=== PATIENT | male | born 1960 | race Caucasian/White ===

== ENCOUNTER 2017-11-09 08:27 | Inpatient (IN) | payer OTHER ==
[~2017-11-09] VITALS: Ht 170.2 cm; Wt 79.3 kg
[~2017-11-09 08:27] MED LIST: ACET-2047 PO; D-ME118S6 PO; IBUP-1542 PO; OSLT75C PO
--- NOTE | 2017-11-09 08:57 | ERD ---
ER Documentation Chief Complaint Chief Complaint chest pressure x 1 hr ago, + vomiting HPI 57-year-old male ambulatory to the ED for evaluation of chest pressure and headache. Patient awoke this morning and subsequently experienced acute onset of unprovoked, severe, worsening pressure-like chest pain which radiates to the shoulders and back followed by a pressure-like occipital headache. Denies visual changes, focal weakness or numbness. Shortness of breath, nausea with one episode of nonbloody nonbilious emesis no diaphoresis. Denies abdominal pain or low back pain. No visual changes, focal weakness or numbness. No URI symptoms or cough. No fevers or chills. ROS All systems reviewed and are negative except as per history of present illness. Medications Home Meds Discontinued Scripts Acetaminophen* (Acetaminophen*) 650 Mg Tablet, 650 MG PO Q6H Y for PAIN AND OR ELEVATED TEMP, #30 TAB Prov:CULLEN PERRIN MD 02/01/16 Ibuprofen* (Ibuprofen*) 600 Mg Tablet, 600 MG PO Q6, #20 TAB Prov:CULLEN PERRIN MD 02/01/16 Dextromethorphan Hb-Promethazine Hcl (Promethazine DM Syrup) 180 Ml Syrup, 10 ML PO Q6H Y for COUGH, #4 OZ Prov:CULLEN PERRIN MD 02/01/16 Oseltamivir Phosphate* (Tamiflu*) 75 Mg Capsule, 75 MG PO BID for 5 Days, CAP Prov:CULLEN PERRIN MD 02/01/16 Allergies Allergies: Coded Allergies: No Known Allergy (Unverified , 11/09/17) PMhx/Soc Reviewed in chart. As per HPI. History of Surgery: Yes (appy ) Anesthesia Reaction: No Hx Neurological Disorder: No Hx Respiratory Disorders: No Hx Cardiac Disorders: No Hx Psychiatric Problems: No Hx Miscellaneous Medical Probl: No Hx Alcohol Use: No Hx Substance Use: No Hx Tobacco Use: No Smoking Status: Never smoker FmHx No family history of sudden cardiac , stroke or subarachnoid hemorrhage. Physical Exam Vitals Vital Signs Date Time Temp Pulse Resp B/P Pulse Ox O2 Delivery O2 Flow Rate FiO2 11/09/17 11:15 61 17 119/75 100 Nasal Cannula 2.0 11/09/17 09:09 Nasal Cannula 2 11/09/17 08:57 Nasal Cannula 3 11/09/17 08:56 135/87 129/84 11/09/17 08:29 98.1 76 18 145/72 100 Physical Exam Const: Alert, severe distress due to pain Head: Atraumatic Eyes: Normal Conjunctiva, anicteric ENT: Normal External Ears, Nose and Mouth. Neck: Full range of motion. Carotids 2+ without bruits, No meningismus. Resp: Clear to auscultation bilaterally Cardio: Regular rate and rhythm, no murmurs Chest Wall: No tenderness or rash Abd: Soft, non tender, non distended. Normal bowel sounds. Skin: No petechiae or rashes Back: No midline or flank tenderness Ext: No cyanosis, or edema. Pulses 4+ in all extremities Neur: Awake and alert. No focal deficit. Psych: Cooperative, anxious Result Diagram: 11/09/1790611/09/17906 Results 24 hrs Laboratory Tests Test 11/09/17 09:07 11/09/17 11:07 White Blood Count 4.710^3/ul Red Blood Count 3.2010^6/ul Hemoglobin 11.2g/dl Hematocrit 31.7% Mean Corpuscular Volume 99.1fl Mean Corpuscular Hemoglobin 35.0pg Mean Corpuscular Hemoglobin Concent 35.3g/dl Red Cell Distribution Width 14.4% Platelet Count 54320^3/UL Mean Platelet Volume 9.5fl Neutrophils % 66.7% Lymphocytes % 24.4% Monocytes % 6.8% Eosinophils % 1.1% Basophils % 0.4% Nucleated Red Blood Cells % 0.0/100WBC Neutrophils # 3.110^3/ul Lymphocytes # 1.110^3/ul Monocytes # 0.310^3/ul Eosinophils # 0.110^3/ul Basophils # 0.010^3/ul Nucleated Red Blood Cells # 0.010^3/ul Prothrombin Time 14.2Sec Prothrombin Time Ratio 1.1 INR International Normalized Ratio 1.09 Activated Partial Thromboplast Time 29.1Sec Sodium Level 143mmol/L Potassium Level 3.7mmol/L Chloride Level 107mmol/L Carbon Dioxide Level 23mmol/L Anion Gap 17 Blood Urea Nitrogen 11mg/dl Creatinine 0.78mg/dl Glucose Level 119mg/dl Calcium Level 8.7mg/dl Iron Level 93ug/dl Total Iron Binding Capacity 250ug/dl Percent Iron Saturation 37% SAT Total Bilirubin 3.2mg/dl Direct Bilirubin 0.00mg/dl Indirect Bilirubin 3.2mg/dl Aspartate Amino Transf (AST/SGOT) 41IU/L Alanine Aminotransferase (ALT/SGPT) 71IU/L Alkaline Phosphatase 84IU/L Troponin I < 0.012ng/ml B-Type Natriuretic Peptide 75PG/ML Total Protein 7.3g/dl Albumin 3.9g/dl Globulin 3.40g/dl Albumin/Globulin Ratio 1.14 Triglycerides Level 47mg/dl Cholesterol Level 59mg/dl LDL Cholesterol, Calculated 22mg/dl HDL Cholesterol 28mg/dl Cholesterol/HDL Ratio 2.1RATIO Thyroid Stimulating Hormone (TSH) 4.340MIU/L Current Medications Medications (Trade) Dose Ordered Sig/Shelby Route PRN Reason Start Time Stop Time Status Last Admin Dose Admin Nitroglycerin (Nitroglycerin (Sl Tab) 0.4 Mg) 1 tab Q5M UP TO 3 DOSES PRN SL CHEST PAIN 11/09/17 09:00 11/09/17 13:09 DC 11/09/17 08:59 Morphine Sulfate (morphine) 4 mg ONCE STAT IV 11/09/17 09:22 11/09/17 09:24 DC 11/09/17 09:27 Ondansetron HCl (Zofran Inj) 4 mg ONCE STAT IV 11/09/17 09:22 11/09/17 09:24 DC 11/09/17 09:27 Iohexol (Omnipaque 350mg/ ml) 50 ml STK-MED ONCE .ROUTE 11/09/17 10:48 11/09/17 10:49 DC 11/09/17 11:00 Aspirin (Aspirin) 325 mg ONCE ONCE PO 11/09/17 12:00 11/09/17 12:01 DC 11/09/17 12:01 LABS: Leukopenia, mild anemia and hyperbilirubinemia EKG: TIME: 08: 29. Sinus rhythm. Ventricular rate 68. Normal MS QRS. No acute ST segment elevation or depression. No ectopy. EP Interpretation: Normal EKG. EKG: TIME: 08: 57. Sinus rhythm. Ventricular rate 60. MS interval 210 ms consistent with first-degree AV block. No acute ST segment elevation or depression. No ectopy. EP interpretation: First-degree AV block otherwise normal ECG. IMAGING: PROCEDURE: XR Chest. CLINICAL INDICATION: Chest Pain. TECHNIQUE: Single frontal view of the chest was obtained COMPARISON: None FINDINGS: The heart is mildly enlarged. The lungs are clear. There is no pleural effusion or pneumothorax. The bones and soft tissue show no acute change. IMPRESSION: Mild cardiomegaly. RPTAT:AAJJ Jose E Camacho Physician Date Time Electronically viewed and signed by Jose E Camacho Physician on 11/09/2017 09: 12 MC/ PROCEDURE: CTA Chest and pulmonary angiogram. CLINICAL INDICATION: Chest pain and shortness of breath.. TECHNIQUE: CT scan of the chest and CT pulmonary angiogram was performed on the multi-slice volumetric CT scanner. High-resolution thin slice coronal and sagittal imaging was obtained from the axial source images following the uncomplicated intravenous administration of 120 cc of Omnipaque 350 contrast. The images were reviewed on a PACS workstation. 3-D post-processing performed. DICOM images are available. DLP = 723.9 mGy-cm. CTDIVol = 49.3, 18.2 mGy. One or more of the following dose reduction techniques were used: Automated exposure control. Adjustment of the mA and/or kV according to patient size. Use of iterative reconstruction technique. COMPARISON: No prior studies are available for comparison. FINDINGS: CT chest: The lungs are clear. Mediastinum and hilum show no significant mass or adenopathy. The vascular structures of the mediastinum are normal in course and caliber. The heart size is normal without pericardial thickening or effusion. The axillary, subpectoral, and supraclavicular regions are unremarkable. Imaging obtained through the upper abdomen is equally unremarkable. The adrenal glands are symmetrically normal. Chest wall is unremarkable. The spine is unremarkable. Mild splenomegaly may be present. CT pulmonary angiogram: The main pulmonary artery, bilateral pulmonary arterial trunks, lobar and segmental branches of the pulmonary arteries show no evidence of filling defect and/or pulmonary emboli. The aorta is normal in caliber without aneurysm or dissection. IMPRESSION: 1. No evidence of pulmonary emboli, aortic aneurysm or dissection.. 2. Normal CT scan of the chest. 3. Mild splenomegaly RPTAT: QQ PROCEDURE: CT Brain without contrast. CLINICAL INDICATION: Headache, dizziness. TECHNIQUE: A CT of the brain without contrast was performed utilizing axial sections from the skull base through the vertex. One or more the following does reduction techniques were utilized: Automated exposure control, adjustment of the mA/ or kV according to patient's size, or use of iterative reconstruction technique. Total exam CTDIvol is 44.99 MGy and DLP is 720.23 mGy-cm. DICOM images are available. COMPARISON: None available. FINDINGS: The ventricles and sulci are mildly prominent indicative of volume loss. There is no intracranial hemorrhage, mass effect or midline shift. No abnormal intra- axial or extra-axial fluid collections are seen. The yeh/white matter differentiation is well preserved. There are minimal foci of hypoattenuation in the white matter, which are nonspecific in etiology but likely reflect chronic small vessel ischemic changes. The visualized paranasal sinuses are essentially clear. IMPRESSION: 1. No acute intracranial hemorrhage, transcortical infarction or mass effect. 2. Minimal chronic small vessel ischemic changes. 3. Mild generalized cerebral volume loss. RPTAT: HH .Parul Ramirez MD, MD Date Time Electronically viewed and signed by .Parul Ramirez MD, on 11/09/2017 11: 27 .N/ PROCEDURE: CTA head and neck CLINICAL INDICATION: Headache and dizziness. TECHNIQUE: The study was performed utilizing a multi-slice multidetector CT scanner. Direct thin section helical 0.625 mm axial sections were obtained through the head and neck after the uneventful administration of 130 cc of Omnipaque 350 nonionic intravenous contrast material. Coronal and sagittal as well as maximal intensity projection reformations were obtained. 3-D images were made. The images were reviewed on a PACS workstation. The total CTDIvol is 15.82, and 1.65 mGy and the DLP is 659.39 mGy-cm. DICOM images are available. One or more of the following dose reduction techniques were used: Automated exposure control. Adjustment of the mA and/or kV according to patient size. Use of iterative reconstruction technique. COMPARISON: No prior studies are available for comparison. FINDINGS: CTA NECK: The origins of the great vessels off the aortic arch are patent and normal in caliber without significant stenosis. The common carotid arteries and internal carotid arteries are normal in appearance without significant atherosclerotic plaque or stenosis. Minimal calcific plaque is seen at the right carotid bulb. The vertebral arteries are also patent and normal in caliber bilaterally. There is no evidence of a hemodynamically significant stenosis or dissection. CTA BRAIN: The internal carotid arteries are patent with mild atherosclerotic calcifications. The middle cerebral arteries and anterior cerebral arteries are patent and normal in caliber. The intracranial vertebral arteries, basilar artery, and posterior cerebral arteries are also patent and normal in caliber without significant atherosclerotic plaque. No aneurysm or vascular malformation is identified. IMPRESSION: 1. Intracranial arteries are patent with no significant stenosis or occlusion. 2. Widely patent major neck vessels with no significant stenosis. 3. No obvious cerebral aneurysms or vascular malformations. The evaluation for small cerebral aneurysms is somewhat limited due to phase of the study. NASCET CAROTID STENOSIS CRITERIA (distal normal appearing ICA as denominator for measurement): 0%-none, 1-49%-mild, 50-70%-moderate, 70-89%-severe, 90-99%- critical. 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 No acute ischemic EKG changes or elevated troponin. CT angiogram of the chest was performed to evaluate for pulmonary embolism and aortic dissection but is negative. Minimal relief from nitrates required Morphine. CT of the brain is unremarkable for bleed or aneurysm. No meningismus or signs of meningitis or encephalitis. Presentation not consistent with subarachnoid hemorrhage and lumbar puncture is deferred. Hyperbilirubinemia with mild LT elevation, but abdominal exam benign will require further evaluation. Admit to telemetry for risk stratification further evaluation and management. Counseled patient and family regarding diagnosis, diagnostic results and plan for admission. CALLS/CONSULTS: Time: 11:54, Dr. Rowley, PATIENT CARE TRANSITIONED: Time: 12:16, Dr. Renato Soto. CRITICAL CARE TIME: Due to the high probability of sudden clinically significant hemodynamic, cardiovascular and neurologic, endocrine deterioration , this patient with sever chest pain and headache required multiple, frequent reevaluations of vital signs and response to therapy. Additional critical care time was spent in obtaining supplemental history from family, interpretation of relevant medical data including labs and imaging studies as well as arranging for ongoing care with the admitting physician. TOTAL CRITICAL CARE TIME: 40 minutes not including other separately reportable procedures. Departure Diagnosis: Primary Impression: Chest pain Chest pain type: unspecified Qualified Code: R07.9 - Chest pain, unspecified type Additional Impressions: Headache Headache type: unspecified Headache chronicity pattern: acute headache Intractability: intractable Qualified Code: R51 - Acute intractable headache , unspecified headache type Hyperbilirubinemia Condition: Serious DEVIN GRAY MD Nov 09, 2017 08:57
[2017-11-09] MEDS: NITROGLYCERIN (SL) 0.4 MG TAB SL PRN ×2 (08:58→08:59)
--- NOTE | 2017-11-09 09:12 | RADRPT ---
PROCEDURE: XR Chest. CLINICAL INDICATION: Chest Pain. TECHNIQUE: Single frontal view of the chest was obtained COMPARISON: None FINDINGS: The heart is mildly enlarged. The lungs are clear. There is no pleural effusion or pneumothorax. The bones and soft tissue show no acute change. IMPRESSION: Mild cardiomegaly. RPTAT:AAJJ Jose E Camacho Physician Date Time Electronically viewed and signed by Jose E Camacho Physician on 11/09/2017 09:12 /
[2017-11-09 09:16] LABS: BASOPHILS % 0.4 % (0.0-2.0); EOSINOPHILS # 0.1 10^3/ul (0.0-0.5); EOSINOPHILS % 1.1 % (0.0-7.0); HEMATOCRIT 31.7 % (42.0-52.0); HEMOGLOBIN 11.2 g/dl (14.0-18.0); LYMPHOCYTES # 1.1 10^3/ul (0.8-2.9); LYMPHOCYTES % 24.4 % (15.0-51.0); MEAN CORPUSCULAR HGB CONC 35.3 g/dl (32.0-37.0); MEAN CORPUSCULAR VOLUME 99.1 fl (82.0-101.0); MEAN PLATELET VOLUME 9.5 fl (7.4-10.4); MONOCYTE # 0.3 10^3/ul (0.3-0.9); MONOCYTES % 6.8 % (0.0-11.0); NEUTROPHIL # 3.1 10^3/ul (1.6-7.5); NEUTROPHILS % 66.7 % (39.0-77.0); PLATELET COUNT 146 10^3/UL (140-415); RED CELL DISTRIBUTION WIDTH 14.4 % (11.5-14.5); WHITE BLOOD COUNT 4.7 10^3/ul (4.8-10.8)
[2017-11-09] MEDS ORDERED: ONDANSETRON 4 MG INJ IV STA (09:22)
[2017-11-09] MEDS ORDERED: morphine 4 MG/ML VIAL IV STA (09:22)
[2017-11-09 09:42] LABS: ALANINE AMINOTRANSFERASE 71 IU/L (13-69); ALBUMIN 3.9 g/dl (3.3-4.9); ALBUMIN/GLOBULIN RATIO 1.14; ALKALINE PHOSPHATASE 84 IU/L (42-121); ANION GAP 17 (8-16); ASPARTATE AMINO TRANSFERASE 41 IU/L (15-46); BILIRUBIN,INDIRECT 3.2 mg/dl (0-1.1); BILIRUBIN,TOTAL 3.2 mg/dl (0.2-1.3); BLOOD UREA NITROGEN 11 mg/dl (7-20); CALCIUM 8.7 mg/dl (8.4-10.2); CARBON DIOXIDE 23 mmol/L (21-31); CHLORIDE 107 mmol/L (97-110); CREATININE 0.78 mg/dl (0.61-1.24); GLUCOSE 119 mg/dl (70-220); POTASSIUM 3.7 mmol/L (3.5-5.1); SODIUM 143 mmol/L (135-144); TOTAL PROTEIN 7.3 g/dl (6.1-8.1)
[2017-11-09 09:54] LABS: TROPONIN-I < 0.012 ng/ml (0.00-0.12)
[2017-11-09 10:14] LABS: INR 1.09; PROTIME 14.2 Sec (11.9-14.9); PT RATIO 1.1
[2017-11-09 10:15] LABS: PARTIAL THROMBOPLASTIN TIME 29.1 Sec (25.0-35.0)
[2017-11-09] MEDS ORDERED: IOHEXOL 350MG/ML 50 ML BTL ONE (10:48)
--- NOTE | 2017-11-09 11:27 | RADRPT ---
PROCEDURE: CT Brain without contrast. CLINICAL INDICATION: Headache, dizziness. TECHNIQUE: A CT of the brain without contrast was performed utilizing axial sections from the skul l base through the vertex. One or more the following does reduction techniques were utilized: Automa ludivina exposure control, adjustment of the mA/ or kV according to patient's size, or use of iterative r econstruction technique. Total exam CTDIvol is 44.99 MGy and DLP is 720.23 mGy-cm. DICOM images are available. COMPARISON: None available. FINDINGS: The ventricles and sulci are mildly prominent indicative of volume loss. There is no intracranial h emorrhage, mass effect or midline shift. No abnormal intra-axial or extra-axial fluid collections a re seen. The yeh/white matter differentiation is well preserved. There are minimal foci of hypoattenuation in the white matter, which are nonspecific in etiology but likely reflect chronic small vessel ischemic changes. The visualized paranasal sinuses are essent ially clear. IMPRESSION: 1. No acute intracranial hemorrhage, transcortical infarction or mass effect. 2. Minimal chronic small vessel ischemic changes. 3. Mild generalized cerebral volume loss. RPTAT: HH .Parul Ramirez MD, MD Date Time Electronically viewed and signed by .Parul Ramirez MD, MD on 11/09/2017 11:27 .N/
--- NOTE | 2017-11-09 11:36 | RADRPT ---
PROCEDURE: CTA Chest and pulmonary angiogram. CLINICAL INDICATION: Chest pain and shortness of breath.. TECHNIQUE: CT scan of the chest and CT pulmonary angiogram was performed on the multi-slice volume tric CT scanner. High-resolution thin slice coronal and sagittal imaging was obtained from the axia l source images following the uncomplicated intravenous administration of 120 cc of Omnipaque 350 co ntrast. The images were reviewed on a PACS workstation. 3-D post-processing performed. DICOM images are available. DLP = 723.9 mGy-cm. CTDIVol = 49.3, 18.2 mGy. One or more of the following dose reduction techniques were used: Automated exposure control. Adjustment of the mA and/or kV according to patient size. Use of iterative reconstruction technique. COMPARISON: No prior studies are available for comparison. FINDINGS: CT chest: The lungs are clear. Mediastinum and hilum show no significant mass or adenopathy. The vascular st ructures of the mediastinum are normal in course and caliber. The heart size is normal without walt cardial thickening or effusion. The axillary, subpectoral, and supraclavicular regions are unremark able. Imaging obtained through the upper abdomen is equally unremarkable. The adrenal glands are s ymmetrically normal. Chest wall is unremarkable. The spine is unremarkable. Mild splenomegaly may be present. CT pulmonary angiogram: The main pulmonary artery, bilateral pulmonary arterial trunks, lobar and segmental branches of the pulmonary arteries show no evidence of filling defect and/or pulmonary emboli. The aorta is normal in caliber without aneurysm or dissection. IMPRESSION: 1. No evidence of pulmonary emboli, aortic aneurysm or dissection.. 2. Normal CT scan of the chest. 3. Mild splenomegaly RPTAT: QQ .Dakota Lopez MD, MD Date Time Electronically viewed and signed by .Dakota Lopez MD, MD on 11/09/2017 11:35 .L/
--- NOTE | 2017-11-09 11:48 | RADRPT ---
PROCEDURE: CTA head and neck CLINICAL INDICATION: Headache and dizziness. TECHNIQUE: The study was performed utilizing a multi-slice multidetector CT scanner. Direct thin s ection helical 0.625 mm axial sections were obtained through the head and neck after the uneventful administration of 130 cc of Omnipaque 350 nonionic intravenous contrast material. Coronal and sagit mark as well as maximal intensity projection reformations were obtained. 3-D images were made. The i mages were reviewed on a PACS workstation. The total CTDIvol is 15.82, and 1.65 mGy and the DLP is 6 59.39 mGy-cm. DICOM images are available. One or more of the following dose reduction techniques were used: Automated exposure control. Adjustment of the mA and/or kV according to patient size. Use of iterative reconstruction technique. COMPARISON: No prior studies are available for comparison. FINDINGS: CTA NECK: The origins of the great vessels off the aortic arch are patent and normal in caliber wi thout significant stenosis. The common carotid arteries and internal carotid arteries are normal in appearance without significant atherosclerotic plaque or stenosis. Minimal calcific plaque is seen at the right carotid bulb. The vertebral arteries are also patent and normal in caliber bilaterally . There is no evidence of a hemodynamically significant stenosis or dissection. CTA BRAIN: The internal carotid arteries are patent with mild atherosclerotic calcifications. The middle cerebral arteries and anterior cerebral arteries are patent and normal in caliber. The intra cranial vertebral arteries, basilar artery, and posterior cerebral arteries are also patent and norm al in caliber without significant atherosclerotic plaque. No aneurysm or vascular malformation is i dentified. IMPRESSION: 1. Intracranial arteries are patent with no significant stenosis or occlusion. 2. Widely patent major neck vessels with no significant stenosis. 3. No obvious cerebral aneurysms or vascular malformations. The evaluation for small cerebral aneur ysms is somewhat limited due to phase of the study. NASCET CAROTID STENOSIS CRITERIA (distal normal appearing ICA as denominator for measurement): 0%-no ne, 1-49%-mild, 50-70%-moderate, 70-89%-severe, 90-99%-critical. RPTAT: HHO .Teo Underwood MD, MD Date Time Electronically viewed and signed by .Teo Underwood MD, on 11/09/2017 11:48 .O/
[2017-11-09] MEDS ORDERED: ASPIRIN 325 MG TAB PO ONE (12:00)
[2017-11-09] MEDS ORDERED: ONDANSETRON 4 MG INJ IV PRN ×2 (13:00→13:30)
[2017-11-09] MEDS ORDERED: ACETAMINOPHEN 325 MG TAB PO PRN ×2 (13:00→13:30)
[2017-11-09] MEDS ORDERED: SOD CHLORIDE 0.9% 1,000 ML IV SCH (13:02)
--- NOTE | 2017-11-09 13:11 | HP ---
Date/Time of Note Date/Time of Note DATE: 11/09/17 TIME: 13:11 Assessment/Plan VTE Prophylaxis VTE Prophylaxis Intervention: LMWH Lines/Catheters IV C[facility]ter [facility] (from [facility] Saline Lock Assessment/Plan Assessment/Plan 1. Acute atypical chest pain - Chest pain resolved with nitro and aspirin - Cardiology consultation placed to Dr. Lee for further workup - Trop negative x1 and will continue to trend - ECHO ordered - CXR showed mild cardiomegaly - BNP normal - PRN nitro, morphine, and O2 - No cardiac history in past 2. Elevated bilirubin - Denies any risk factors and no acute abdominal pain - cholelithiasis seen on US abdomen - Jackson negative - continue to monitor 3. Anemia - iron studies within normal limits - will check FOBT 4. GERD - started on PPI 5. Code status - Full 6. Diet - Cardiac 7. DVT ppx - LMWH 8. GI ppx - PPI 9. Disposition - Admit to telemetry for cardiac workup HPI/ROS Admit Date/Time Admit Date/Time 11/09/17 Hx of Present Illness 57 yo M with PMH GERD presented to ED c/o chest pain that started this am in sternal area, nonradiating, pressure like, severe in nature, lasting 1 hour, associated with shortness of breath, nausea, 2 episodes of vomiting, and dizziness. Patient was not doing anything at time of chest pain. Patient given aspirin and nitro in ED with relief of symptoms. Patient does admit to acid reflux but does not take any medication. Is physically active as well per family at bedside. Patient states chest pain and shortness of breath resolved but still experiencing dizziness. States was in normal state of health yesterday. Denies any abdominal pain, constipation or diarrhea. In ED, vitals were stable and first trop was negative. Patient was found to have an elevated T/D bilirubin. CXR shows mild cardiomegaly but BNP within normal limits. ROS All 12 systems reviewed and pertinent positives as per HPI. All others negative. Constitutional: No diaphoresis, No disoriented, No fatigue, No febrile, No nausea Eyes: No discharge, No redness ENT: No congestion, No discharge Respiratory: shortness of breath, No cough, No sputum, No wheezing Cardiovascular: chest pain, lightheadedness, No edema, No palpitations Gastrointestinal: nausea, vomiting, No constipation, No diarrhea, No pain Genitourinary: no complaints Musculoskeletal: no complaints Skin: no complaints, No erythema, No rash Neurologic: dizziness Endocrine: no complaints Lymphatic: no complaints Psychological: nl mood/affect Immunologic: no complaints PMH/Family/Social Past Medical History Medical History: GERD Past Surgical History Past Surgical Hx: appendectomy Family History Significant Family History: no pertinent family hx Social History Alcohol Use: none Smoking Status: Never smoker Drug Use: none Exam/Review of Systems Vital Signs Vitals Vital Signs Date Time Temp Pulse Resp B/P Pulse Ox O2 Delivery O2 Flow Rate FiO2 11/09/17 11:15 61 17 119/75 100 Nasal Cannula 2.0 11/09/17 08:29 98.1 Exam Constitutional: alert, oriented, well developed, No distress Psych: nl mood/affect, no complaints Head: atraumatic, normocephalic Eyes: PERRL, nl conjunctiva, nl lids, nl sclera ENMT: mucosa pink and moist, nl external ears & nose Neck: non-tender, supple Respiratory: clear to auscultation, No crackles/rales, No labored breathing, No wheezing Cardiovascular: nl pulses, other (bradycardia), No edema, No systolic murmur Gastrointestinal: bowel sounds, non-tender, other (jackson sign negative), soft , No distended, No rebound or guarding Genitourinary - Male: No CVA tenderness Musculoskeletal: nl extremities to inspection Extremities: normal pulses Neurological: DENTAL OFFICER II-XII intact, nl mental status, nl speech Skin: nl turgor Lymph: nl lymph nodes Labs Result Diagram: 11/09/17 0907 11/09/17 0907 Medications Medications No home medications Procedures Procedures PROCEDURE: CTA head and neck CLINICAL INDICATION: Headache and dizziness. TECHNIQUE: The study was performed utilizing a multi-slice multidetector CT scanner. Direct thin section helical 0.625 mm axial sections were obtained through the head and neck after the uneventful administration of 130 cc of Omnipaque 350 nonionic intravenous contrast material. Coronal and sagittal as well as maximal intensity projection reformations were obtained. 3-D images were made. The images were reviewed on a PACS workstation. The total CTDIvol is 15.82, and 1.65 mGy and the DLP is 659.39 mGy-cm. DICOM images are available. One or more of the following dose reduction techniques were used: Automated exposure control. Adjustment of the mA and/or kV according to patient size. Use of iterative reconstruction technique. COMPARISON: No prior studies are available for comparison. FINDINGS: CTA NECK: The origins of the great vessels off the aortic arch are patent and normal in caliber without significant stenosis. The common carotid arteries and internal carotid arteries are normal in appearance without significant atherosclerotic plaque or stenosis. Minimal calcific plaque is seen at the right carotid bulb. The vertebral arteries are also patent and normal in caliber bilaterally. There is no evidence of a hemodynamically significant stenosis or dissection. CTA BRAIN: The internal carotid arteries are patent with mild atherosclerotic calcifications. The middle cerebral arteries and anterior cerebral arteries are patent and normal in caliber. The intracranial vertebral arteries, basilar artery, and posterior cerebral arteries are also patent and normal in caliber without significant atherosclerotic plaque. No aneurysm or vascular malformation is identified. IMPRESSION: 1. Intracranial arteries are patent with no significant stenosis or occlusion. 2. Widely patent major neck vessels with no significant stenosis. 3. No obvious cerebral aneurysms or vascular malformations. The evaluation for small cerebral aneurysms is somewhat limited due to phase of the study. PROCEDURE: CT Brain without contrast. CLINICAL INDICATION: Headache, dizziness. TECHNIQUE: A CT of the brain without contrast was performed utilizing axial sections from the skull base through the vertex. One or more the following does reduction techniques were utilized: Automated exposure control, adjustment of the mA/ or kV according to patient's size, or use of iterative reconstruction technique. Total exam CTDIvol is 44.99 MGy and DLP is 720.23 mGy-cm. DICOM images are available. COMPARISON: None available. FINDINGS: The ventricles and sulci are mildly prominent indicative of volume loss. There is no intracranial hemorrhage, mass effect or midline shift. No abnormal intra- axial or extra-axial fluid collections are seen. The yeh/white matter differentiation is well preserved. There are minimal foci of hypoattenuation in the white matter, which are nonspecific in etiology but likely reflect chronic small vessel ischemic changes. The visualized paranasal sinuses are essentially clear. IMPRESSION: 1. No acute intracranial hemorrhage, transcortical infarction or mass effect. 2. Minimal chronic small vessel ischemic changes. 3. Mild generalized cerebral volume loss. PROCEDURE: XR Chest. CLINICAL INDICATION: Chest Pain. TECHNIQUE: Single frontal view of the chest was obtained COMPARISON: None FINDINGS: The heart is mildly enlarged. The lungs are clear. There is no pleural effusion or pneumothorax. The bones and soft tissue show no acute change. IMPRESSION: Mild cardiomegaly. PROCEDURE: CTA Chest and pulmonary angiogram. CLINICAL INDICATION: Chest pain and shortness of breath.. TECHNIQUE: CT scan of the chest and CT pulmonary angiogram was performed on the multi-slice volumetric CT scanner. High-resolution thin slice coronal and sagittal imaging was obtained from the axial source images following the uncomplicated intravenous administration of 120 cc of Omnipaque 350 contrast. The images were reviewed on a PACS workstation. 3-D post-processing performed. DICOM images are available. DLP = 723.9 mGy-cm. CTDIVol = 49.3, 18.2 mGy. One or more of the following dose reduction techniques were used: Automated exposure control. Adjustment of the mA and/or kV according to patient size. Use of iterative reconstruction technique. COMPARISON: No prior studies are available for comparison. FINDINGS: CT chest: The lungs are clear. Mediastinum and hilum show no significant mass or adenopathy. The vascular structures of the mediastinum are normal in course and caliber. The heart size is normal without pericardial thickening or effusion. The axillary, subpectoral, and supraclavicular regions are unremarkable. Imaging obtained through the upper abdomen is equally unremarkable. The adrenal glands are symmetrically normal. Chest wall is unremarkable. The spine is unremarkable. Mild splenomegaly may be present. CT pulmonary angiogram: The main pulmonary artery, bilateral pulmonary arterial trunks, lobar and segmental branches of the pulmonary arteries show no evidence of filling defect and/or pulmonary emboli. The aorta is normal in caliber without aneurysm or dissection. IMPRESSION: 1. No evidence of pulmonary emboli, aortic aneurysm or dissection.. 2. Normal CT scan of the chest. 3. Mild splenomegaly PROCEDURE: US Abdomen. CLINICAL INDICATION: Hyperbilirubinemia. TECHNIQUE: Multiple real-time images were acquired of the patient's abdomen and retroperitoneum utilizing a high resolution transducer. COMPARISON: CT abdomen earlier same date FINDINGS: The liver is of normal size, contour and echogenicity with no mass or intrahepatic ductal dilatation. The common bile duct measures 4 mm in transverse plane. Portal and hepatic vein are patent on color flow Doppler imaging. There are multiple mobile gallstones. Gallbladder wall is not thickened and no abnormal pericholecystic fluid collection is seen. No sonographic Jackson's sign was elicited during this exam. Limited visualization of pancreas is unremarkable. There is no ascites. The right kidney measures 9.7 cm in length. There is no abdominal aortic aneurysm. IMPRESSION: Cholelithiasis. No evidence of cholecystitis or biliary obstruction. MELVIN MYLES MD Nov 09, 2017 13:11
[2017-11-09] MEDS ORDERED: MAGNESIUM HYDROXIDE 30ML CUP PO PRN (13:30)
[2017-11-09] MEDS ORDERED: NITROGLYCERIN (SL) 0.4 MG TAB SL PRN (13:30)
[2017-11-09] MEDS ORDERED: DOCUSATE SODIUM 100 MG CAP PO PRN (13:30)
[2017-11-09] MEDS ORDERED: morphine LIQ (10 MG/5 ML) CUP PO PRN (13:30)
[2017-11-09] MEDS ORDERED: NACL 0.9% 3 ML SYG IV SCH (13:30)
[2017-11-09 13:38] LABS: IRON 93 ug/dl (35-150)
[2017-11-09 13:47] LABS: TOTAL IRON BINDING CAPACITY 250 ug/dl (241-421)
--- NOTE | 2017-11-09 14:07 | RADRPT ---
PROCEDURE: US Abdomen. CLINICAL INDICATION: Hyperbilirubinemia. TECHNIQUE: Multiple real-time images were acquired of the patient's abdomen and retroperitoneum ut ilizing a high resolution transducer. COMPARISON: CT abdomen earlier same date FINDINGS: The liver is of normal size, contour and echogenicity with no mass or intrahepatic ductal dilatation . The common bile duct measures 4 mm in transverse plane. Portal and hepatic vein are patent on colo r flow Doppler imaging. There are multiple mobile gallstones. Gallbladder wall is not thickened and no abnormal pericholecystic fluid collection is seen. No sonographic Jackson's sign was elicited duri ng this exam. Limited visualization of pancreas is unremarkable. There is no ascites. The right kidn ey measures 9.7 cm in length. There is no abdominal aortic aneurysm. IMPRESSION: Cholelithiasis. No evidence of cholecystitis or biliary obstruction. .Nils Hawthorne MD, Date Time Electronically viewed and signed by .Nils Hawthorne MD, on 11/09/2017 14:06 .A/
[2017-11-09 16:08] VITALS: PULSE 55
[2017-11-09 16:16] VITALS: PULSE 54
[2017-11-09 16:20] VITALS: Ht 170.2 cm; Wt 79.3 kg
[2017-11-09 16:28] VITALS: BP 122/68; PULSE 54; RESP 16
[2017-11-09 16:41] LABS: CHOL/HDL RATIO 2.1 RATIO
[2017-11-09 17:02] LABS: THYROID STIMULATING HORMONE 4.34 MIU/L (0.465-4.680)
[2017-11-09 17:37] LABS: CREATINE KINASE 97 IU/L (23-200)
[2017-11-09 17:52] LABS: CK-MB 2.49 ng/ml (0.0-2.4); TROPONIN-I < 0.012 ng/ml (0.00-0.12)
[2017-11-09 19:25] VITALS: BP 113/56; RESP 18
[2017-11-09 20:03] VITALS: PULSE 66
[2017-11-10] VITALS (13 sets, daily range): BP systolic 108–121; BP diastolic 51–67; PULSE 57–69; RESP 16–20
[2017-11-10 00:20] LABS: CREATINE KINASE 107 IU/L (23-200)
[2017-11-10 00:43] LABS: CK-MB 2.79 ng/ml (0.0-2.4); TROPONIN-I < 0.012 ng/ml (0.00-0.12)
[2017-11-10] MEDS: PANTOPRAZOLE (EC) 40 MG TAB PO SCH (06:09)
[2017-11-10 09:24] LABS: BASOPHILS % 0.2 % (0.0-2.0); EOSINOPHILS # 0.1 10^3/ul (0.0-0.5); EOSINOPHILS % 2.1 % (0.0-7.0); HEMATOCRIT 31.6 % (42.0-52.0); HEMOGLOBIN 10.9 g/dl (14.0-18.0); LYMPHOCYTES # 1.2 10^3/ul (0.8-2.9); LYMPHOCYTES % 26.7 % (15.0-51.0); MEAN CORPUSCULAR HEMOGLOBIN 34.9 pg (29.0-33.0); MEAN CORPUSCULAR HGB CONC 34.5 g/dl (32.0-37.0); MEAN CORPUSCULAR VOLUME 101.3 fl (82.0-101.0); MONOCYTE # 0.3 10^3/ul (0.3-0.9); MONOCYTES % 6.8 % (0.0-11.0); NEUTROPHIL # 2.8 10^3/ul (1.6-7.5); NEUTROPHILS % 63.7 % (39.0-77.0); PLATELET COUNT 156 10^3/UL (140-415); RED BLOOD COUNT 3.12 10^6/ul (4.70-6.10); RED CELL DISTRIBUTION WIDTH 14.7 % (11.5-14.5); WHITE BLOOD COUNT 4.4 10^3/ul (4.8-10.8)
[2017-11-10 09:39] LABS: ALBUMIN 3.4 g/dl (3.3-4.9); ALBUMIN/GLOBULIN RATIO 1.09; BILIRUBIN,INDIRECT 3.9 mg/dl (0-1.1); BILIRUBIN,TOTAL 3.9 mg/dl (0.2-1.3); CALCIUM 8.2 mg/dl (8.4-10.2); CREATININE 0.87 mg/dl (0.61-1.24); POTASSIUM 4.1 mmol/L (3.5-5.1); TOTAL PROTEIN 6.5 g/dl (6.1-8.1)
[2017-11-10] MEDS: ENOXAPARIN 40 MG/0.4 ML SYG SC SCH (09:46)
--- NOTE | 2017-11-10 15:12 | RADRPT ---
Echocardiogram Report Patient Name: RAULITO LEE Gender: Male Date: 1960 Study Date: 10-Nov-2017 Rn Iv Therapy: Evangelista Novak [facility] Location: 5552 Ref. Physician: MELVIN MYLES Quality: Good Procedures: Transthoracic echocardiogram with complete 2D, M-Mode, and doppler examination. Indications: Chest Pain. 2D/M Mode Doppler Measurement Value Normal Ranges Measurement Value Normal Ranges LVIDd 2D 4.8 3.5 - 5.6 cm AV Mean PG 8.3 mmHg LVPWd 2D 1.0 0.6 - 1.1 cm AV Peak Vladimir 1.4 m/sec IVSd 2D 1.1 0.6 - 1.1 cm LVOT Peak Vladimir 1.1 m/sec AoR Diam 2D 3.1 2.0 - 3.7 cm LVOT Peak PG 4.5 mmHg LA Dimen 2D 3.4 2.3 - 4.0 cm MV E Peak Vladimir 0.9 m/sec MV A Peak Vladimir 0.7 m/sec MV Decel Time 211 msec MV Decel Graves 4 TR Peak Vladimir 2.4 m/sec TR Peak PG 23.6 mmHg RVSP 27.0 mmHg Findings Left Ventricle: Normal left ventricular systolic function. Normal left ventricular cavity size. Mild concentric left ventricular hypertrophy. Ejection fraction is visually estimated at 55 %. Tissue Doppler/Mitral Doppler indices are within normal limits. Right Ventricle: Normal right ventricular size. Normal right ventricular systolic function. Left Atrium: The left atrium is normal in size. Right Atrium: The right atrium is normal in size. Mitral Valve: Mitral valve leaflets appear mildly thickened. Mild mitral annular calcification. Trace mitral regurgitation. Aortic Valve: Normal appearance of the aortic valve. No significant aortic stenosis or insufficiency. Tricuspid Valve: Normal appearance of the tricuspid valve. Estimated peak PA systolic pressure 27 mmHg. There is trace tricuspid regurgitation. Pulmonic Valve: Pulmonic valve not well visualized. Pericardium: Normal pericardium with no significant pericardial effusion. Aorta: Normal aortic root. IVC: Dilated IVC with respiratory collapse consistent with elevated right atrial pressure. Conclusions 1.Normal left ventricular systolic function. Normal left ventricular cavity size. Mild concentric left ventricular hypertrophy. Ejection fraction is visually estimated at 55 %. Tissue Doppler/Mitral Doppler indices are within normal limits. 2.Mitral valve leaflets appear mildly thickened. Mild mitral annular calcification. Trace mitral regurgitation. 3.Normal appearance of the tricuspid valve. Estimated peak PA systolic pressure 27 mmHg. There is trace tricuspid regurgitation. Electronically Signed By: Ti Lee 10-Nov-2017 15:11:59 -0800 Patient Name: RAULITO LEE Study Date: 10-Nov-[id number]
--- NOTE | 2017-11-10 20:33 | PN ---
Date/Time of Note Date/Time of Note DATE: 11/10/17 TIME: 20:25 Assessment/Plan VTE Prophylaxis VTE Prophylaxis Intervention: SCD's Lines/Catheters IV Catheter Type (from Nrs): Saline Lock Assessment/Plan Assessment/Plan 1. Chest pain : aCS ruled out, stress test tomorrow 2. 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 cholelithiasis without cholecystitis dispo: f/u stress test report check hepatitis panel and set up outpt GI followup supportive care Subjective 24 Hr Interval Summary Free Text/Dictation no more chest pain Exam/Review of Systems Vital Signs Vitals Vital Signs Date Time Temp Pulse Resp B/P Pulse Ox O2 Delivery O2 Flow Rate FiO2 11/10/17 16:00 67 11/10/17 15:48 98.3 18 117/62 100 11/09/17 20:00 Nasal Cannula 2.0 Intake and Output 11/09/17 11/09/17 11/10/17 15:00 23:00 07:00 Intake Total 525 ml 1050 ml Balance 525 ml 1050 ml Exam GENERAL: Patient is alert, oriented x 3, in no apparent distress; slightly lethargic . Patient is able to sit up unassisted.Patient makes good eye contact , is conversant, interactive, coherent. Patient appears calm and comfortable and is able to follow commands. HEENT: Oropharynx is clear. There is no carotid bruit, no masses. Patient's pupils are equal, round and reactive to light bilaterally. Extraocular motions are intact. There is no scleral icterus. There is no facial asymmetry. NECK: Supple. LUNGS: Clear to auscultation bilaterally with good air entry. No Wheezes or crackles. HEART: S1, S2. No murmur, gallops or rubs. Regular rate and rhythm. ABDOMEN: Soft, nontender. Normoactive bowel sounds. There are no stigmata of chronic liver disease. BACK: no costovertebral angle tenderness. GENITOURINARY: Deferred. EXTREMITIES: No edema. There is no cyanosis, clubbing. There are 2+ pulses bilaterally distally. NEUROLOGIC: The patient has no lateralizing signs. Cranial nerves II-XII are intact. SKIN: Otherwise, unremarkable. Results Result Diagram: 11/10/17 0825 11/10/17 0825 Results 24 hrs Laboratory Tests Test 11/09/17 23:27 11/10/17 08:25 Creatine Kinase 107 Creatine Kinase Index 2.6 Creatinine Kinase MB (Mass) 2.79 H Troponin I < 0.012 White Blood Count 4.4 L Red Blood Count 3.12 L Hemoglobin 10.9 L Hematocrit 31.6 L Mean Corpuscular Volume 101.3 H Mean Corpuscular Hemoglobin 34.9 H Mean Corpuscular Hemoglobin Concent 34.5 Red Cell Distribution Width 14.7 H Platelet Count 156 Mean Platelet Volume 10.0 Neutrophils % 63.7 Lymphocytes % 26.7 Monocytes % 6.8 Eosinophils % 2.1 Basophils % 0.2 Nucleated Red Blood Cells % 0.0 Neutrophils # 2.8 Lymphocytes # 1.2 Monocytes # 0.3 Eosinophils # 0.1 Basophils # 0.0 Nucleated Red Blood Cells # 0.0 Sodium Level 139 Potassium Level 4.1 Chloride Level 106 Carbon Dioxide Level 26 Anion Gap 11 Blood Urea Nitrogen 16 Creatinine 0.87 Glucose Level 93 Hemoglobin A1c 5.2 Calcium Level 8.2 L Magnesium Level 2.0 Total Bilirubin 3.9 H Direct Bilirubin 0.00 Indirect Bilirubin 3.9 H Aspartate Amino Transf (AST/SGOT) 46 Alanine Aminotransferase (ALT/SGPT) 78 H Alkaline Phosphatase 67 Total Protein 6.5 Albumin 3.4 Globulin 3.10 Albumin/Globulin Ratio 1.09 Thyroid Stimulating Hormone (TSH) 2.810 Medications Medications Current Medications Ondansetron HCl (Zofran Inj) 4 mg Q6H PRN IV NAUSEA AND/OR VOMITING; Start at 13:30 Nitroglycerin (Nitroglycerin (Sl Tab) 0.4 Mg) 1 tab Q5M PRN SL CHEST PAIN; Start 11/09/17 at 13:30 Acetaminophen (Tylenol Tab) 650 mg Q6H PRN PO PAIN LEVEL 1-3 OR FEVER Last administered on 11/09/17t 17:03; Admin Dose 650 MG; Start 11/09/17 at 13:30 Morphine Sulfate (morphine) 6 mg Q4H PRN PO PAIN 7-10; Start 11/09/17 at 13:30 Docusate Sodium (Colace) 100 mg Q12H PRN PO CONSTIPATION; Start 11/09/17 at 13 :30 Magnesium Hydroxide (Milk Of Mag) 30 ml DAILY PRN PO CONSTIPATION; Start 11/09 at 13:30 Pantoprazole (Protonix Tab) 40 mg DAILY@06 PO Last administered on 11/10/17 06:09; Admin Dose 40 MG; Start 11/10/17 at 06:00 Enoxaparin Sodium (Lovenox) 40 mg DAILY SC Last administered on 11/10/17 09: 46; Admin Dose 40 MG; Start 11/10/17 at 09:00 Procedures Procedures Echocardiogram Report Patient Name: RAULITO LEE Gender: Male Date: 1960 Study Date: 10-Nov-2017 Client Support Representative: Evangelista Novak [facility] Location: 5552 Ref. Physician: MELVIN MYLES Quality: Good Procedures: Transthoracic echocardiogram with complete 2D, M-Mode, and doppler examination. Indications: Chest Pain. 2D/M Mode Doppler Measurement Value Normal Ranges Measurement Value Normal Ranges LVIDd 2D 4.8 3.5 - 5.6 cm AV Mean PG 8.3 mmHg LVPWd 2D 1.0 0.6 - 1.1 cm AV Peak Vladimir 1.4 m/sec IVSd 2D 1.1 0.6 - 1.1 cm LVOT Peak Vladimir 1.1 m/sec AoR Diam 2D 3.1 2.0 - 3.7 cm LVOT Peak PG 4.5 mmHg LA Dimen 2D 3.4 2.3 - 4.0 cm MV E Peak Vladimir 0.9 m/sec MV A Peak Vladimir 0.7 m/sec MV Decel Time 211 msec MV Decel [place] 4 TR Peak Vladimir 2.4 m/sec TR Peak PG 23.6 mmHg RVSP 27.0 mmHg Findings Left Ventricle: Normal left ventricular systolic function. Normal left ventricular cavity size. Mild concentric left ventricular hypertrophy. Ejection fraction is visually estimated at 55 %. Tissue Doppler/Mitral Doppler indices are within normal limits. Right Ventricle: Normal right ventricular size. Normal right ventricular systolic function. Left Atrium: The left atrium is normal in size. Right Atrium: The right atrium is normal in size. Mitral Valve: Mitral valve leaflets appear mildly thickened. Mild mitral annular calcification. Trace mitral regurgitation. Aortic Valve: Normal appearance of the aortic valve. No significant aortic stenosis or insufficiency. Tricuspid Valve: Normal appearance of the tricuspid valve. Estimated peak PA systolic pressure 27 mmHg. There is trace tricuspid regurgitation. Pulmonic Valve: Pulmonic valve not well visualized. Pericardium: Normal pericardium with no significant pericardial effusion. Aorta: Normal aortic root. IVC: Dilated IVC with respiratory collapse consistent with elevated right atrial pressure. Conclusions 1. Normal left ventricular systolic function. Normal left ventricular cavity size. Mild concentric left ventricular hypertrophy. Ejection fraction is visually estimated at 55 %. Tissue Doppler/Mitral Doppler indices are within normal limits. 2. Mitral valve leaflets appear mildly thickened. Mild mitral annular calcification. Trace mitral regurgitation. 3. Normal appearance of the tricuspid valve. Estimated peak PA systolic pressure 27 mmHg. There is trace tricuspid regurgitation. Electronically Signed By: Ti Lee 10-Nov-2017 15:11:59 -0800 Patient Name: RAULITO LEE Study Date: 10-Nov-2017 [id number] LILIA LAW Nov 10, 2017 20:33
[2017-11-11 00:05] VITALS: PULSE 58
[2017-11-11 04:03] VITALS: PULSE 56
[2017-11-11] MEDS: PANTOPRAZOLE (EC) 40 MG TAB PO SCH (06:00)
--- NOTE | 2017-11-11 06:44 | CONS ---
DATE OF ADMISSION: 11/09/2017 DATE OF CONSULTATION: 11/10/2017 CARDIAC CONSULTATION DATE OF CONSULTATION: 11/10/2017 REASON FOR CONSULTATION: Chest pain, assess for acute coronary syndrome. REQUESTING PHYSICIAN: Dr. Soto from the hospitalist service. HISTORY OF PRESENT ILLNESS: Mr. Bowden a 57-year-old male with a history of gastroesophageal r eflux disease who presented with complaints of substernal chest pain, pressure-like, without signifi cant radiation, mild associated shortness breath, nausea and dizziness. Upon arrival in the emergen cy department, temperature of 98.1, blood pressure 145/72, pulse 76, respiratory rate 18, saturating 100%. Patient's labs revealed a white count of 4.7, hemoglobin 11.2, platelet count 146, sodium of 143, potassium 3.7, creatinine 0.7, BUN 11, INR 1.9, troponin negative. BNP 75. The patient under went abdominal ultrasound revealing cholelithiasis, but no cholecystitis, a CT/CTA revealing no evid ence of pulmonary emboli, a chest x-ray revealing mild cardiomegaly with clear lungs, a head CT reve aling mild generalized cerebral volume loss and a CTA that revealed intracranial arteries are patent with no significant stenosis or occlusion, widely patent major neck vessel, no significant stenoses . PAST MEDICAL HISTORY: As above in HPI. MEDICATIONS CURRENTLY IN HOSPITAL: Lovenox 40 mg subQ daily, Protonix, Zofran, sublingual nitroglyc gerda, Tylenol, morphine, Colace, milk of magnesia p.r.n. ALLERGIES: No known drug allergies. SOCIAL HISTORY: No tobacco, ETOH or illicit drug use. FAMILY HISTORY: No history of sudden cardiac or early CAD. REVIEW OF SYSTEMS: As above in HPI. CONSTITUTIONAL: No fevers, chills. PULMONARY: No shortness of breath. CARDIOVASCULAR: No current chest pain, is resolved. GASTROINTESTINAL: No vomiting. GENITOURINARY: No hematuria. MUSCULOSKELETAL: Degenerative joint disease. PSYCHIATRIC: No documented psych history. NEUROLOGIC: No documented CVA. PHYSICAL EXAMINATION VITAL SIGNS: Temperature of 98.3, blood pressure 113/61, pulse 59, respiratory rate 20, saturating 100%. GENERAL: The patient is alert, awake, in no acute distress. NECK: JVP approximately 8-9 cm of water. CHEST: Fair air movement throughout. HEART: Regular rate and rhythm. Normal S1, S2, I/III systolic murmur, nondisplaced PMI. ABDOMEN: Positive bowel sounds, soft. EXTREMITIES: No edema, 1+ pulses bilaterally, posterior tibial. LABORATORY DATA: As above in HPI. No further labs for my review at this time. IMAGING STUDIES: As above in HPI. No further imaging studies for my review at this time. IMPRESSION: 1. Chest pain, assess for acute coronary syndrome. 2. Bradycardia, borderline. 3. Borderline intermittent hypertension. 4. Anemia. 5. Cholelithiasis. RECOMMENDATIONS: At this time, would follow the patient's 2D echo for assessment of ejection fracti on, wall motion or any major valve abnormalities. Will give the patient sublingual nitroglycerin fo r recurrent episodes of chest pain and place the patient for stress test to take place in the [facility]. Thank you for allowing me to take part in the care of this patient. I will continue to follow along closely with you. Further recommendations will be made as the patient progresses through his [facility] clinical course. Dictated By: AQUILES LICEA/JANET Conf#: [id number] DID#: [id number]
[2017-11-11 08:00] VITALS: PULSE 53
[2017-11-11 08:28] VITALS: BP 113/57; PULSE 60; RESP 18
[2017-11-11] MEDS: ENOXAPARIN 40 MG/0.4 ML SYG SC SCH (08:46)
[2017-11-11 09:10] LABS: BASOPHILS % 0.5 % (0.0-2.0); EOSINOPHILS # 0.1 10^3/ul (0.0-0.5); EOSINOPHILS % 1.7 % (0.0-7.0); HEMATOCRIT 32.2 % (42.0-52.0); HEMOGLOBIN 11.1 g/dl (14.0-18.0); LYMPHOCYTES # 1.1 10^3/ul (0.8-2.9); LYMPHOCYTES % 26.6 % (15.0-51.0); MEAN CORPUSCULAR HEMOGLOBIN 34.5 pg (29.0-33.0); MEAN CORPUSCULAR HGB CONC 34.5 g/dl (32.0-37.0); MEAN PLATELET VOLUME 9.8 fl (7.4-10.4); MONOCYTE # 0.3 10^3/ul (0.3-0.9); NEUTROPHIL # 2.6 10^3/ul (1.6-7.5); NEUTROPHILS % 63.5 % (39.0-77.0); PLATELET COUNT 157 10^3/UL (140-415); RED BLOOD COUNT 3.22 10^6/ul (4.70-6.10); RED CELL DISTRIBUTION WIDTH 14.6 % (11.5-14.5); WHITE BLOOD COUNT 4.1 10^3/ul (4.8-10.8)
[2017-11-11 09:29] LABS: ALBUMIN 3.7 g/dl (3.3-4.9); ALBUMIN/GLOBULIN RATIO 1.08; BILIRUBIN,INDIRECT 3.4 mg/dl (0-1.1); BILIRUBIN,TOTAL 3.4 mg/dl (0.2-1.3); CALCIUM 8.7 mg/dl (8.4-10.2); CREATININE 0.88 mg/dl (0.61-1.24); MAGNESIUM 2.2 mg/dl (1.7-2.5); POTASSIUM 4.3 mmol/L (3.5-5.1); TOTAL PROTEIN 7.1 g/dl (6.1-8.1)
[2017-11-11] MEDS ORDERED: REGADENOSON 0.4 MG/5 ML SYG ONE (09:38)
--- NOTE | 2017-11-11 11:33 | ECORPT ---
DATE OF SERVICE: STUDY: Lexiscan cardiac stress test. REFERRING PHYSICIAN: Dr. Soto REASON FOR EVALUATION: Chest pain. DESCRIPTION OF TEST: The patient was brought into the heart station in fasting condition. He had s uccessful Lexiscan injection. Blood pressure 115/65. Heart rate 60. There was no EKG ischemic eleni nges. The imaging portion is dictated separately. Dictated By: DONALD CAPUTO MD ML/NTS Conf#: [id number] DID#: [id number]
--- NOTE | 2017-11-11 11:35 | PN ---
Date/Time of Note Date/Time of Note DATE: 11/11/17 TIME: 11:31 Assessment/Plan VTE Prophylaxis VTE Prophylaxis Intervention: SCD's Lines/Catheters IV Catheter Type (from Nrsg): Saline Lock Assessment/Plan Assessment/Plan 1. Chest pain : aCS ruled out, s/p stress test today 2. 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 cholelithiasis without cholecystitis dispo: f/u stress test report Set up outpt GI followup supportive care Subjective 24 Hr Interval Summary Free Text/Dictation just returned from stress test feels somewhat tired Exam/Review of Systems Vital Signs Vitals Vital Signs Date Time Temp Pulse Resp B/P Pulse Ox O2 Delivery O2 Flow Rate FiO2 11/11/17 08:28 97.7 60 18 113/57 99 Nasal Cannula 2.0 Intake and Output 11/10/17 11/10/17 11/11/17 15:00 23:00 07:00 Intake Total 1200 ml Balance 1200 ml Exam Constitutional: alert, oriented Head: atraumatic, normocephalic Neck: non-tender, supple Respiratory: clear to auscultation Cardiovascular: regular rate and rhythm Gastrointestinal: S/ NT / ND / +BS Extremities: no edema, good radial pulses Results Result Diagram: 11/11/17 0832 11/11/17 0830 Results 24 hrs Laboratory Tests Test 11/11/17 08:30 11/11/17 08:32 Sodium Level 143 Potassium Level 4.3 Chloride Level 104 Carbon Dioxide Level 30 Anion Gap 13 Blood Urea Nitrogen 20 Creatinine 0.88 Glucose Level 96 Calcium Level 8.7 Magnesium Level 2.2 Total Bilirubin 3.4 H Direct Bilirubin 0.00 Indirect Bilirubin 3.4 H Aspartate Amino Transf (AST/SGOT) 42 Alanine Aminotransferase (ALT/SGPT) 74 H Alkaline Phosphatase 66 Total Protein 7.1 Albumin 3.7 Globulin 3.40 H Albumin/Globulin Ratio 1.08 Hepatitis B Surface Antigen NEGATIVE Hepatitis B Surface Antibody NEGATIVE Hepatitis C Antibody NEGATIVE White Blood Count 4.1 L Red Blood Count 3.22 L Hemoglobin 11.1 L Hematocrit 32.2 L Mean Corpuscular Volume 100.0 Mean Corpuscular Hemoglobin 34.5 H Mean Corpuscular Hemoglobin Concent 34.5 Red Cell Distribution Width 14.6 H Platelet Count 157 Mean Platelet Volume 9.8 Neutrophils % 63.5 Lymphocytes % 26.6 Monocytes % 7.0 Eosinophils % 1.7 Basophils % 0.5 Nucleated Red Blood Cells % 0.0 Neutrophils # 2.6 Lymphocytes # 1.1 Monocytes # 0.3 Eosinophils # 0.1 Basophils # 0.0 Nucleated Red Blood Cells # 0.0 Medications Medications Current Medications Ondansetron HCl (Zofran Inj) 4 mg Q6H PRN IV NAUSEA AND/OR VOMITING; Start at 13:30 Nitroglycerin (Nitroglycerin (Sl Tab) 0.4 Mg) 1 tab Q5M PRN SL CHEST PAIN; Start 11/09/17 at 13:30 Acetaminophen (Tylenol Tab) 650 mg Q6H PRN PO PAIN LEVEL 1-3 OR FEVER Last administered on 11/09/17 17:03; Admin Dose 650 MG; Start 11/09/17 at 13:30 Morphine Sulfate (morphine) 6 mg Q4H PRN PO PAIN 7-10; Start 11/09/17 at 13:30 Docusate Sodium (Colace) 100 mg Q12H PRN PO CONSTIPATION; Start 11/09/17 at 13 :30 Magnesium Hydroxide (Milk Of Mag) 30 ml DAILY PRN PO CONSTIPATION; Start 11/09 at 13:30 Pantoprazole (Protonix Tab) 40 mg DAILY@06 PO Last administered on 11/10/17 06:09; Admin Dose 40 MG; Start 11/10/17 at 06:00 Enoxaparin Sodium (Lovenox) 40 mg DAILY SC Last administered on 11/11/17 08: 46; Admin Dose 40 MG; Start 11/10/17 at 09:00 LILIA LAW Nov 11, 2017 11:35
--- NOTE | 2017-11-11 11:36 | PDOCDIS ---
Discharge Instructions DIAGNOSIS Discharge Diagnosis Chest pain cholelithiasis CONDITION Patient Condition: Stable HOME CARE INSTRUCTIONS: Special Diet: cardiac, low fat/low cholestrol ACTIVITY: Activity Restrictions: Slowly Increase Activity Rest between Activity REFERRALS Other Referrals Need to follow-up with GI to discuss your mild hyperbilirubinemia as we talked about while you were here. Please call Dr. Chapa's office for an appointment. Name, Degree : Mary Anne Chapa MD Specialty : Gastroenterology Office Address : [id number] [place] [address] [address] [facility] [place] [address] Office Office Also Followup with your primary doctor within the next 1-2 weeks. If you don't have one please let someone know, we can give you resources that may help you pick one. You may call Dr Raphael Fuller's office. he's accepting new patients Name, Degree: Raphael Fuller MD Specialty: Internal Medicine Comments: Office Address: [address] [place] [address] [place] [id number] Office Office You may also call your insurance company to assign one to you. Review your medication list with your nurse before leaving and if you need new prescriptions please let your nurse know. I may have made changes to your home medications or given you new prescriptions, please let your primary doctor know as well. Stay compliant with your medications and report any side effects to your PCP or pharmacist. Return to the ER if you have any concerns and cannot reach your doctors or call your insurance company, they usually have a nurse that can help you. LILIA LAW Nov 11, 2017 11:36
--- NOTE | 2017-11-11 11:48 | CONS ---
Date/Time of Note Date/Time of Note DATE: 11/11/17 TIME: 11:46 Assessment/Plan Assessment/Plan Additional Assessment/Plan 1. Chest pain, assess for acute coronary syndrome- stress test done, will follow clinically now. 2. Bradycardia, borderline - no indication for pacing. 3. Borderline intermittent hypertension - well controlled, con't med rx. 4. Anemia - H/H stable - no bleeding. 5. Cholelithiasis. Consultation Date/Type/Reason Admit Date/Time Nov 09, 2017 at 12:33 Initial Consult Date 24 HR Interval Summary Free Text/Dictation NO acute events - BP stabe - awaiting stress test results. ROS: No fever, no chills, no nausea, no vomiting, no diarrhea/constipation No recent weight changes No chest pain, no PND, no orthopnea No dizziness, blurred vision No thirst, no heat or cold intolerance Exam/Review of Systems Vital Signs Vitals Vital Signs Date Time Temp Pulse Resp B/P Pulse Ox O2 Delivery O2 Flow Rate FiO2 11/11/17 08:28 97.7 60 18 113/57 99 Nasal Cannula 2.0 Intake and Output 11/10/17 11/10/17 11/11/17 15:00 23:00 07:00 Intake Total 1200 ml Balance 1200 ml Exam General: WN/WD/NAD, AOx 3 HEENT: Unicetric/atraumatic/EOMI (follow commands) NECK: JVD elevated, no thyromegaly Lymph: no lymphadenopathy HEART: regular with no S3, II/ systolic murmur at apex LUNGS: Coarse sounds ABD: soft, NT, ND, +BS : Intact Neuro: non focal SKIN: chronic changes EXT: trace edema Results Result Diagram: 11/11/17 0832 11/11/17 0830 Results 24 hrs Laboratory Tests Test 11/11/17 08:30 11/11/17 08:32 Sodium Level 143 Potassium Level 4.3 Chloride Level 104 Carbon Dioxide Level 30 Anion Gap 13 Blood Urea Nitrogen 20 Creatinine 0.88 Glucose Level 96 Calcium Level 8.7 Magnesium Level 2.2 Total Bilirubin 3.4 H Direct Bilirubin 0.00 Indirect Bilirubin 3.4 H Aspartate Amino Transf (AST/SGOT) 42 Alanine Aminotransferase (ALT/SGPT) 74 H Alkaline Phosphatase 66 Total Protein 7.1 Albumin 3.7 Globulin 3.40 H Albumin/Globulin Ratio 1.08 Hepatitis B Surface Antigen NEGATIVE Hepatitis B Surface Antibody NEGATIVE Hepatitis C Antibody NEGATIVE White Blood Count 4.1 L Red Blood Count 3.22 L Hemoglobin 11.1 L Hematocrit 32.2 L Mean Corpuscular Volume 100.0 Mean Corpuscular Hemoglobin 34.5 H Mean Corpuscular Hemoglobin Concent 34.5 Red Cell Distribution Width 14.6 H Platelet Count 157 Mean Platelet Volume 9.8 Neutrophils % 63.5 Lymphocytes % 26.6 Monocytes % 7.0 Eosinophils % 1.7 Basophils % 0.5 Nucleated Red Blood Cells % 0.0 Neutrophils # 2.6 Lymphocytes # 1.1 Monocytes # 0.3 Eosinophils # 0.1 Basophils # 0.0 Nucleated Red Blood Cells # 0.0 Medications Medications Current Medications Ondansetron HCl (Zofran Inj) 4 mg Q6H PRN IV NAUSEA AND/OR VOMITING; Start at 13:30 Nitroglycerin (Nitroglycerin (Sl Tab) 0.4 Mg) 1 tab Q5M PRN SL CHEST PAIN; Start 11/09/17 at 13:30 Acetaminophen (Tylenol Tab) 650 mg Q6H PRN PO PAIN LEVEL 1-3 OR FEVER Last administered on 11/09/17 17:03; Admin Dose 650 MG; Start 11/09/17 at 13:30 Morphine Sulfate (morphine) 6 mg Q4H PRN PO PAIN 7-10; Start 11/09/17 at 13:30 Docusate Sodium (Colace) 100 mg Q12H PRN PO CONSTIPATION; Start 11/09/17 at 13 :30 Magnesium Hydroxide (Milk Of Mag) 30 ml DAILY PRN PO CONSTIPATION; Start 11/09 at 13:30 Pantoprazole (Protonix Tab) 40 mg DAILY@06 PO Last administered on 11/10/17 06:09; Admin Dose 40 MG; Start 11/10/17 at 06:00 Enoxaparin Sodium (Lovenox) 40 mg DAILY SC Last administered on 11/11/17 08: 46; Admin Dose 40 MG; Start 11/10/17 at 09:00 DONALD CAPUTO MD Nov 11, 2017 11:48
[2017-11-11 12:00] VITALS: BP 116/59; PULSE 66; PULSE 70; RESP 18
--- NOTE | 2017-11-11 12:34 | RADRPT ---
PROCEDURE: Lexiscan myocardial perfusion study CLINICAL INDICATION: 57 -year-old patient complaining of chest pain. TECHNIQUE: Lexiscan 0.4 mg intravenously separate acquisition gated myocardial perfusion SPECT usi ng Tc 99m Myoview 30.8 mCi intravenously at stress and Tc-99m Myoview, 10.6 mCi intravenously at res t was performed using the rest/stress sequence. Poststress Myoview SPECT images were obtained in th e supine position. COMPARISON: No prior studies. FINDINGS: Perfusion images reveal no evidence of perfusion defects. Lexiscan post stress gated SPECT images demonstrate no wall motion abnormalities. IMPRESSION: 1. No evidence of perfusion defects. 2. No wall motion abnormalities. 3. The left ventricle ejection fraction at stress is 50%. All report was made to Dr. Madison [facility] 33 p.m. on November 11, 2017. RPTAT: HH .Alida Cabrera MD, Date Time Electronically viewed and signed by .Alida Cabrera MD, on 11/11/2017 12:34 .L/
[2017-11-11] MEDS ORDERED: ASPI-664 PO (12:42)
--- NOTE | 2017-11-11 12:50 | DS ---
Date/Time of Note Date/Time of Note DATE: 11/11/17 TIME: 12:44 Discharge Summary Admission/Discharge Info Admit Date/Time Nov 09, 2017 at 12:33 Discharge Date/Time 11/11/17. . Discharge Diagnosis 1. Chest pain : aCS ruled out, s/p stress test today 2. 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 cholelithiasis without cholecystitis . Patient Condition: Stable Consults Cardiology: Gricelda . Hospital Course 57-year-old male who was admitted for workup for midsternal chest pain. He was seen by cardiology, underwent a stress test that was unremarkable. He also had a 2D echocardiogram that showed no concerning abnormalities. He was found to have a mild hyperbilirubinemia on admission, but the liver ultrasound as well as hepatitis screen has come back negative so far. We have put in a referral to outpatient gastroenterology for follow-up which will be faxed over to his insurance company to obtain authorization patient has also been given information for GI office and has been advised that he needs follow-up for what further workup of his mild hyperbilirubinemia. Of note is that patient used to be a heavy drinker but has stopped drinking for about 20 years now. Patient is stable for discharge. . Home Meds Discontinued Scripts Acetaminophen* (Acetaminophen*) 650 Mg Tablet, 650 MG PO Q6H Y for PAIN AND OR ELEVATED TEMP, #30 TAB Prov:CULLEN PERRIN MD 02/01/16 Ibuprofen* (Ibuprofen*) 600 Mg Tablet, 600 MG PO Q6, #20 TAB Prov:CULLEN PERRIN MD 02/01/16 Dextromethorphan Hb-Promethazine Hcl (Promethazine DM Syrup) 180 Ml Syrup, 10 ML PO Q6H Y for COUGH, #4 OZ Prov:CULLEN PERRIN MD 02/01/16 Oseltamivir Phosphate* (Tamiflu*) 75 Mg Capsule, 75 MG PO BID for 5 Days, CAP Prov:CULLEN PERRIN MD 02/01/16 Follow-up Plan See hosp course . Primary Care Provider Care Physician No Primary Time spent on discharge: > 30 minutes Pending Labs Laboratory Tests Test 11/11/17 08:30 11/11/17 08:32 Sodium Level 143mmol/L (135-144) Potassium Level 4.3mmol/L (3.5-5.1) Chloride Level 104mmol/L (97-110) Carbon Dioxide Level 30mmol/L (21-31) Anion Gap 13 (8-16) Blood Urea Nitrogen 20mg/dl (7-20) Creatinine 0.88mg/dl (0.61-1.24) Glucose Level 96mg/dl (70-220) Calcium Level 8.7mg/dl (8.4-10.2) Magnesium Level 2.2mg/dl (1.7-2.5) Total Bilirubin 3.4mg/dl (0.2-1.3) Direct Bilirubin 0.00mg/dl (0.00-0.20) Indirect Bilirubin 3.4mg/dl (0-1.1) Aspartate Amino Transf (AST/SGOT) 42IU/L (15-46) Alanine Aminotransferase (ALT/SGPT) 74IU/L (13-69) Alkaline Phosphatase 66IU/L (42-121) Total Protein 7.1g/dl (6.1-8.1) Albumin 3.7g/dl (3.3-4.9) Globulin 3.40g/dl (1.3-3.2) Albumin/Globulin Ratio 1.08 Hepatitis B Surface Antigen NEGATIVE (NEGATIVE) Hepatitis B Surface Antibody NEGATIVE (NEGATIVE) Hepatitis C Antibody NEGATIVE (NEGATIVE) White Blood Count 4.110^3/ul (4.8-10.8) Red Blood Count 3.2210^6/ul (4.70-6.10) Hemoglobin 11.1g/dl (14.0-18.0) Hematocrit 32.2% (42.0-52.0) Mean Corpuscular Volume 100.0fl (82.0-101.0) Mean Corpuscular Hemoglobin 34.5pg (29.0-33.0) Mean Corpuscular Hemoglobin Concent 34.5g/dl (32.0-37.0) Red Cell Distribution Width 14.6% (11.5-14.5) Platelet Count 50722^3/UL (140-415) Mean Platelet Volume 9.8fl (7.4-10.4) Neutrophils % 63.5% (39.0-77.0) Lymphocytes % 26.6% (15.0-51.0) Monocytes % 7.0% (0.0-11.0) Eosinophils % 1.7% (0.0-7.0) Basophils % 0.5% (0.0-2.0) Nucleated Red Blood Cells % 0.0/100WBC (0.0-0.0) Neutrophils # 2.610^3/ul (1.6-7.5) Lymphocytes # 1.110^3/ul (0.8-2.9) Monocytes # 0.310^3/ul (0.3-0.9) Eosinophils # 0.110^3/ul (0.0-0.5) Basophils # 0.010^3/ul (0.0-0.1) Nucleated Red Blood Cells # 0.010^3/ul (0.0-0.0) LILIA LAW. Nov 11, 2017 12:50
== END 2017-11-11 15:32 | disposition home or self-care (01) | DRG 313 ==
LOC: E/R 08:27 → MS4 12:33
PROVIDERS: ADMIT Internal Medicine; ATTEND Internal Medicine
DX: R07.89 Other chest pain (principal); D53.1 Other megaloblastic anemias, not elsewhere classified; K21.9 Gastro-esophageal reflux disease without esophagitis; K80.20 Calculus of gallbladder without cholecystitis without obstruction; R51 Headache; R03.0 Elevated blood-pressure reading, without diagnosis of hypertension
CPT/HCPCS: 36415; 70450; 70496; 70498; 71010; 71275; 76705; 78452; 80053; 80061; 82550; 82553; 83036; 83540; 83735; 83880; 84443; 84484; 85025; 85610; 85730; 86706; 86803; 87340; 93005; 93017; 93306; 96374; 96375; A9500; A9505; J1650; J2270; J2405; J2785; J7030; Q9967

== ENCOUNTER 2017-11-14 15:48 | Outpatient (CLI) | END 2017-11-14 16:19 | disposition home or self-care (01) ==

== ENCOUNTER 2017-11-28 13:51 | Outpatient (CLI) | END 2017-11-28 16:39 | disposition home or self-care (01) ==